=== PATIENT | female | born 1990 | race African-American/Black ===

== ENCOUNTER 2017-01-18 18:27 | Inpatient (IN) | payer OTHER ==
[2017-01-18 20:45] LABS: MCH 27.6 pg (25.7-33.7); MCHC 33.1 g/dl (32.0-36.0); MEAN CELL VOLUME 83.3 fl (80-96); MEAN PLT VOLUME 7.4 fl (7.5-11.1); PLATELET COUNT 321 K/MM3 (134-434); RDW 15.6 % (11.6-15.6)
--- NOTE | 2017-01-18 21:02 | PDOC ---
History of Present Illness - General Chief Complaint: Abscess Boil Stated Complaint: Abscess Boil Time Seen by Provider: 01/18/17 19:57 - History of Present Illness Initial Comments: 01/18/17 20:56 Previously healthy 26 year female with swollen and painful lesion on inner right thigh that began draining yesterday evening after a hot bath. Denies any previous history of abscesses or cellulites but noticed this swelling three days ago followed by a fever the next day that she recorded over 100 degrees. She took a hot soak in her tub last night and noticed purulent and malodorous drainage a few hours after. No chills, nausea, vomiting, diarrhea or other symptoms. She is on Depot shot. Her PCP is Dr. Ferrera 01/18/17 21:21 Past History - Past Medical History Allergies/Adverse Reactions: Allergies Allergy/AdvReac Type Severity Reaction Status Date / Time No Known Allergies Allergy Verified 01/18/17 18:38 Home Medications: Ambulatory Orders Ferrous Sulfate [Feosol] 325 mg PO TID 10/22/15 Anemia: Yes Asthma: No Cancer: No Cardiac Disorders: No Diabetes: No HTN: No Suicide Attempt (Hx): No Seizures: No Thyroid Disease: No - Surgical History Cholecystectomy: Yes - Immunization History Immunization Up to Date: Yes - Psycho/Social/Smoking Cessation Hx Anxiety: No Suicidal Ideation: No Smoking Status: No Smoking History: Never smoked Have you smoked in the past 12 months: No Number of Cigarettes Smoked Daily: 0 Information on smoking cessation initiated: No Hx Alcohol Use: No Drug/Substance Use Hx: No Substance Use Type: None Hx Substance Use Treatment: No Review of Systems - Review of Systems Constitutional: Yes: Fever. No: Chills, Diaphoresis, Loss of Appetite, Malaise , Weakness HEENTM: No: Blurred Vision, Nose Congestion Respiratory: No: Cough, Shortness of Breath, SOB with Exertion Cardiac (ROS): No: Chest Pain, Edema, Irregular Heart Rate, Lightheadedness, Palpitations ABD/GI: No: Constipated, Nausea, Poor Appetite, Rectal Bleeding, Vomiting, Indigestion : No: Burning, Discharge, Frequency, Hematuria Musculoskeletal: No: Joint Swelling, Muscle Pain, Joint Stiffness Integumentary: No: Erythema Neurological: No: Headache, Paresthesia, Weakness *Physical Exam - Vital Signs Last Vital Signs Temp Pulse Resp BP Pulse Ox 99.6 F 93 H 18 117/68 100 01/18/17 18:39 01/18/17 18:39 01/18/17 18:39 01/18/17 18:39 01/18/17 18:39 - Physical Exam General Appearance: Yes: Appropriately Dressed. No: Apparent Distress HEENT: positive: GABRIEL, Normal Voice. negative: Tonsillar Erythema Respiratory/Chest: positive: Lungs Clear, Normal Breath Sounds. negative: Respiratory Distress, Accessory Muscle Use Cardiovascular: positive: Regular Rhythm, Regular Rate, S1, S2. negative: Edema , JVD, Murmur Gastrointestinal/Abdominal: positive: Normal Bowel Sounds, Soft. negative: Tender, Flat Lymphatic: negative: Adenopathy Integumentary: positive: Other (Area of th) Neurologic: positive: Fully Oriented, Alert, Normal Mood/Affect ED Treatment Course - LABORATORY CBC & Chemistry Diagram: 01/18/17 20:42 01/18/17 20:42 - ADDITIONAL ORDERS Additional order review: 01/18/17 20:42 RBC 4.11 MCV 83.3 MCHC 33.1 RDW 15.6 MPV 7.4 L Medical Decision Making - Medical Decision Making 01/18/17 21:22 Previously healthy 26 year old female with erythematous and indurated right inner thigh abscess x3 days and recent drainage. Had one day of fever yesterday but currently afebrile without other symptoms. Concern for complex and loculated abscess given 114-15 cm area of erythema with 5-6 cm area of induration. WBC 11 and electrolytes within normal limits with neg Upreg. After speaking with Dr. Loaiza, will start patient on Zosyn, with ID and gen surg consult. 01/18/17 22:08 *DC/Admit/Observation/Transfer Diagnosis at time of Disposition: Abscess - Discharge Dispostion Condition at time of disposition: Stable Admit: Yes - Attestations Physician Attestion: 01/18/17 22:14 I, Dr. Johnny Baez, attest that this document has been prepared under my direction and personally reviewed by me in its entirety. I further attest, that it accurately reflects all work, treatment, procedures and medical decision -making performed by me.
[2017-01-18] MEDS ORDERED: CLINDAMYCIN 600MG PREMIX IVPB 50 ML IVPB ONE (21:05)
[2017-01-18] MEDS: CLINDAMYCIN 600MG PREMIX IVPB 50 ML IVPB SCH ×2 (21:17→21:19)
[2017-01-18 21:44] LABS: URINE APPEARANCE CLEAR; URINE BILIRUBIN NEGATIVE (NEGATIVE); URINE COLOR DKYELLOW; URINE GLUCOSE (UA) NEGATIVE (NEGATIVE); URINE KETONE TRACE (NEGATIVE); URINE LEUK ESTERASE NEGATIVE (NEGATIVE); URINE NITRITE NEGATIVE (NEGATIVE); URINE UROBILINOGEN 2.0 E.U/dl E.U./dl (0.2-1.0)
[2017-01-18 21:49] LABS: ANION GAP 7 (8-16); CALCIUM 8.9 mg/dL (8.5-10.1); CO2 28 mmol/L (21-32); CREATININE 0.6 mg/dL (0.55-1.02); GLUCOSE,RANDOM 77 mg/dL (74-106)
[2017-01-18 21:50] LABS: URINE BLOOD 2+ (NEGATIVE); URINE PROTEIN 1+ (NEGATIVE)
[2017-01-18 22:03] LABS: INR 1.28 (0.82-1.09); PROTHROMBIN TIME (PATIENT) 14.2 SEC (9.98-11.88)
[2017-01-18 22:08] LABS: URINE MUCUS MANY; URINE RBC 6 /hpf (0-3); URINE WBC 4 /hpf (3-5)
[2017-01-18] MEDS ORDERED: PIPERACILLIN/TAZOB 3.375 GM 50 ML IVPB ONE (23:13)
[2017-01-18] MEDS: PIPERACILLIN/TAZOB 3.375 GM/50 ML PRE-DOCKED IV SCH (23:16)
[2017-01-18] MEDS ORDERED: IBUPROFEN 400 MG TABLET (FP) PO ONE (23:46)
[2017-01-18] MEDS ORDERED: POTASSIUM CHLORIDE TABS 10 MEQ TABLET.ER (FP) PO ONE (23:50)
[2017-01-19] MEDS ORDERED: IBUPROFEN 400 MG TABLET (FP) PO ONE (00:02)
[2017-01-19] MEDS ORDERED: POTASSIUM CHLORIDE TABS 20 MEQ TABLET.ER (FP) PO ONE (00:08)
[2017-01-19] MEDS ORDERED: POTASSIUM CHLORIDE TABS 10 MEQ TABLET.ER (FP) PO ONE (00:18)
[2017-01-19 03:25] VITALS: BMI 33.3
[2017-01-19] MEDS: PIPERACILLIN/TAZOB 3.375 GM/50 ML PRE-DOCKED IV SCH ×2 (03:52→09:35)
[2017-01-19 06:52] LABS: EOSINOPHIL 1.5 % (0-4.5); MCH 28.2 pg (25.7-33.7); MCHC 33.6 g/dl (32.0-36.0); MEAN CELL VOLUME 83.9 fl (80-96); MEAN PLT VOLUME 7.4 fl (7.5-11.1); NEUTROPHILS 47.2 % (42.8-82.8); PLATELET COUNT 311 K/MM3 (134-434); RDW 15.7 % (11.6-15.6); WHITE BLOOD COUNT 10.3 K/mm3 (4.0-10.0)
[2017-01-19 07:15] LABS: ALBUMIN 3.5 g/dl (3.4-5.0); ANION GAP 10 (8-16); BILIRUBIN,TOTAL 0.8 mg/dL (0.2-1.0); CALCIUM 8.9 mg/dL (8.5-10.1); CO2 28 mmol/L (21-32); CREATININE 0.7 mg/dL (0.55-1.02); GLUCOSE,RANDOM 74 mg/dL (74-106); SGOT/AST 14 U/L (15-37); SGPT/ALT 16 U/L (12-78); TOT PROT 7.9 g/dl (6.4-8.2)
[2017-01-19 07:16] LABS: ALK PHOS 116 U/L (45-117)
--- NOTE | 2017-01-19 08:34 | CONSULT ---
- Consultation REQUESTING PROVIDER: Elis CONSULT REQUEST: We have been asked to surgically evaluate this patient for ? STI right medial thigh PCP:Alonso Gillis HISTORY OF PRESENT ILLNESS: CTSP for evaluation and management of an ABSSSI of the right medial thigh; 3 days of progressive pain and swelling in an area of a ? " pimple" that she squeezed; the area subsequently opened and started to drain spontaneously. She has never had a soft tissue infection before. PMHx: none PSHx: none Home Medications Medication Instructions Recorded Ferrous Sulfate [Feosol] 325 mg PO TID 10/22/15 Allergies Allergy/AdvReac Type Severity Reaction Status Date / Time No Known Allergies Allergy Verified 01/18/17 18:38 PHYSICAL EXAM: GENERAL: Awake, alert, and fully oriented, in no acute distress. HEAD: Normal with no signs of trauma. EYES: sclera anicteric, conjunctiva clear. NECK: Normal ROM, supple without lymphadenopathy, JVD, or masses. ABDOMEN: Soft, nontender, not distended, normoactive bowel sounds, no guarding, no rebound, no masses. No organomegaly. MUSCULOSKELETAL: Normal ROM at all joints. No bony deformities or tenderness. No CVA tenderness. UPPER EXTREMITIES: 2+ pulses, warm, well-perfused. No cyanosis. Cap refill <2 seconds. No peripheral edema. LOWER EXTREMITIES: 2+ pulses, warm, well-perfused. No calf tenderness. No peripheral edema. NEUROLOGICAL: Normal speech, gait not observed. PSYCH: Cooperative. Good eye contact. Appropriate mood and affect. SKIN: Warm, dry, normal turgor, no rashes. Induration right medial thigh w/ draining area; slight ttp; no erythema Vital Signs Temperature 98.4 F 01/19/17 06:15 Pulse Rate 69 01/19/17 06:15 Respiratory Rate 20 01/19/17 06:15 Blood Pressure 115/69 01/19/17 06:15 O2 Sat by Pulse Oximetry (%) 99 01/19/17 01:08 Lab Results WBC 10.3 K/mm3 (4.0-10.0) H 01/19/17 05:50 RBC 4.03 M/mm3 (3.60-5.2) 01/19/17 05:50 Hgb 11.4 GM/dL (10.7-15.3) 01/19/17 05:50 Hct 33.8 % (32.4-45.2) 01/19/17 05:50 MCV 83.9 fl (80-96) 01/19/17 05:50 MCHC 33.6 g/dl (32.0-36.0) 01/19/17 05:50 RDW 15.7 % (11.6-15.6) H 01/19/17 05:50 Plt Count 311 K/MM3 (134-434) 01/19/17 05:50 Sodium 142 mmol/L (136-145) 01/19/17 05:50 Potassium 3.6 mmol/L (3.5-5.1) 01/19/17 05:50 Chloride 104 mmol/L (98-107) 01/19/17 05:50 Carbon Dioxide 28 mmol/L (21-32) 01/19/17 05:50 Anion Gap 10 (8-16) 01/19/17 05:50 BUN 9 mg/dL (7-18) 01/19/17 05:50 Creatinine 0.7 mg/dL (0.55-1.02) 01/19/17 05:50 Random Glucose 74 mg/dL (74-106) 01/19/17 05:50 Calcium 8.9 mg/dL (8.5-10.1) 01/19/17 05:50 Blood Type O POSITIVE 01/18/17 21:24 Antibody Screen Negative 01/18/17 21:24 INR 1.28 (0.82-1.09) H 01/18/17 21:31 IMP: ABSSSI right medial thigh PLAN: IVABS; warm compresses and re-evaluation; may need I and D; will f/u. Luigi Cuevas MD [facility] Visit type - Case Type Case Type: ED Admission - Emergency Emergency Visit: Yes ED Registration Date: 01/18/17 Care time: The patient presented to the Emergency Department on the above date and was hospitalized for further evaluation of their emergent condition. - New patient This patient is new to me today: Yes Date on this admission: 01/19/17 - Critical Care Critical Care patient: No
[2017-01-19 09:33] LABS: ERYTHROCYTE SEDIMENTATION RATE 52 mm/hr (0-20)
[2017-01-19] MEDS ORDERED: ENOXAPARIN NA (PORCINE) 30 MG/0.3 ML DISP.SYRIN SQ SCH (10:00)
--- NOTE | 2017-01-19 11:32 | PN ---
Progress Note (short form) - Note Progress Note: Healthy 26yo AA F with no known hx of diabetes presents with right inner thigh abscess. Pt states that the lesion began as a small pimple which she noticed 3 days ago. The next day the abscess grew in size and became erythematous. Pt states that she had taken a hot bath when she noticed that abscess began to drain white/yellow discharge and she reports having a temperature of 100.1F after which she came to the ED. Pt denies having any history of abscess or skin infections in the past. Denies shaving the area or ingrown hairs. Denies new pets or sick contact. Denies N/V/D or chills. Denies LE numbness or tingling. Past surgical hx of cholecystectomy in 2014. No known drug allergies. Impression/Plan: R thigh cellulitis with abscess-cover staph including MRSA and strep F/U wound and blood Cx for C/S. Start IV Vanco 1250mg BID Warm compress surgical f/u may need drainage Problem List - Problems (1) Abscess Code(s): L02.91 - CUTANEOUS ABSCESS, UNSPECIFIED (2) Cellulitis Code(s): L03.90 - CELLULITIS, UNSPECIFIED
[2017-01-19] MEDS ORDERED: VANCOMYCIN 1,250 MG in DEXTROSE 5%-WATER - 250 ML IVPB SCH (12:00)
--- NOTE | 2017-01-19 12:13 | EKG ---
Test Reason : Blood Pressure : / mmHG Vent. Rate : 066 BPM Atrial Rate : 066 BPM P-R Int : 158 ms QRS Dur : 094 ms QT Int : 408 ms P-R-T Axes : 049 019 022 degrees QTc Int : 427 ms NORMAL SINUS RHYTHM WITH SINUS ARRHYTHMIA EARLY REPOLARIZATION PATTERN NO PREVIOUS ECGS AVAILABLE CORELATE CLINICALLY. Confirmed by LEONIDAS VELARDE MD ([id number]) on 01/19/2017 12:12:56 PM Referred By: [facility] Confirmed By:LEONIDAS VELARDE MD
--- NOTE | 2017-01-19 14:48 | CONS ---
INFECTIOUS DISEASE CONSULTATION DATE OF CONSULTATION: DATE OF DICTATION: 01/19/2017 REQUESTING PHYSICIAN: The hospitalist service. HISTORY OF PRESENT ILLNESS: This is a 26-year-old woman, otherwise healthy, no history of diabetes, who presents with a 3-day history of what started as a pustule on her right inner thigh. It began to swell. She tried to squeeze it. She had a little drainage. She developed some fever of 100.1 at home, and she came to the emergency room. She did take a hot shower yesterday and noted that she started having some spontaneous drainage. Besides the low-grade fever, she has had no chills. There is no vomiting, diarrhea, dysuria, cough. She otherwise feels well. She lives at home with her children, and she reports one child gets an allergic reaction to mosquito bites, but there is no history of any of her kids having skin problems. She has no history of prior abscesses in the past. ALLERGIES: She has no known drug allergies. MEDICATIONS: She takes Feosol as an outpatient. PAST MEDICAL HISTORY: Notable for anemia. SURGICAL HISTORY: Cholecystectomy. OBSTETRICAL HISTORY: She is status post vaginal delivery of 5 kids in the past. She has been 4 times. She has 5 children. She has a set of twins. FAMILY HISTORY: Noncontributory. SOCIAL HISTORY: She is from [place]. There is no history of any cigarette or substance use. REVIEW OF SYSTEMS: She has no cough. No nausea, vomiting, diarrhea, or dysuria. PHYSICAL EXAMINATION: Vital Signs: Temperature is 98.2, pulse is 78, blood pressure is 118/61, respiratory rate 17. She is saturating 100%. HEENT: She is normocephalic. Her eyes are anicteric. Neck: Supple. Lungs: Clear to auscultation. Heart: Regular rate and rhythm. Abdomen: Soft and nontender. Extremities: Notable for about a 6-cm area of induration and erythema on her right inner thigh with a small opening that is draining a small amount of serous fluid. LABORATORY DATA: Her white count on admission was 11. This morning, is 10.3. Hemoglobin is 11.4. Platelets are 311. Her BUN is 9 and creatinine 0.7. LFTs are normal. Her urine beta hCG is negative. Cultures of the abscess and blood cultures are pending. In summary, this is a 26-year-old woman with abscess with associated cellulitis. Her coverage needs to include MRSA in this setting, as well as other staphylococcus and streptococcus. Would treat her with vancomycin. Follow up wound and blood cultures, warm compresses, and surgical followup as needed to see if she ends up needing drainage or whether this will resolve with antibiotics. Further recommendations to follow. Esa HADDAD/[id number]
--- NOTE | 2017-01-19 16:57 | HP ---
Admitting History and Physical - Primary Care Physician PCP: Alonso Gillis - Admission Chief Complaint: pain & swelling Rt inner thigh History of Present Illness: 26 y/o otherwise healthy F; who states that she developed a lump on the inner RT thiigh which started 3 days ago as a small "pimple" which she tried to squeeze but was not successful. The lesions grew worse in the ensuing days leading to admission, and likely developed a low grade fever as well, She denies any previous such occurrences anywhere. She denies Hx of DM, or any other Medical issues. She did have her GB removed in 2016 @ [facility] while 17 Months . As of late, she was doing more aerobic activity n(walking) and felt rubbing of her thighs, but did not feel any discomfort until 3 days ago. She feels better today when compared to days past. History Source: Patient Limitations to Obtaining History: No Limitations - Past Medical History ...: No Heme/Onc: Yes: Anemia - Past Surgical History Past Surgical History: Yes: Cholecystectomy - Smoking History Smoking history: Never smoked Have you smoked in the past 12 months: No Aproximately how many cigarettes per day: 0 - Alcohol/Substance Use Hx Alcohol Use: No History of Substance Use: reports: None (denies) - Social History Usual Living Arrangement: Yes: With Child (5) ADL: Support Services History of Recent Travel: No Home Medications - Allergies Allergies/Adverse Reactions: Allergies Allergy/AdvReac Type Severity Reaction Status Date / Time No Known Allergies Allergy Verified 01/18/17 18:38 - Home Medications Home Medications: Ambulatory Orders Ferrous Sulfate [Feosol] 325 mg PO TID 10/22/15 Home Medications (free text): Depo-IM control med (given by Architectural Administrative Assistant) Family Disease History - Family Disease History Family History: Unremarkable Review of Systems - Review of Systems Constitutional: reports: Chills, Fever Eyes: reports: No Symptoms HENT: reports: No Symptoms Neck: reports: No Symptoms Cardiovascular: reports: No Symptoms Respiratory: reports: No Symptoms Gastrointestinal: reports: No Symptoms Genitourinary: reports: No Symptoms Breasts: reports: No Symptoms Reported Musculoskeletal: reports: No Symptoms Integumentary: reports: Wound Neurological: reports: No Symptoms Endocrine: reports: No Symptoms Hematology/Lymphatic: reports: No Symptoms Physical Examination Vital Signs: Vital Signs Temperature 98.6 F 01/19/17 14:25 Pulse Rate 67 01/19/17 14:25 Respiratory Rate 18 01/19/17 14:25 Blood Pressure 123/67 01/19/17 14:25 O2 Sat by Pulse Oximetry (%) 100 01/19/17 09:28 Constitutional: Yes: Well Nourished, No Distress, Calm Eyes: Yes: WNL, Conjunctiva Clear, EOM Intact HENT: Yes: Atraumatic Neck: Yes: WNL Cardiovascular: Yes: WNL Respiratory: Yes: WNL Gastrointestinal: Yes: WNL ...Rectal Exam: Yes: Deferred Renal/: Yes: WNL Musculoskeletal: Yes: WNL Extremities: Yes: Other (Dressing over abscess site of the Rt thigh) Edema: No Peripheral Pulses WNL: Yes Integumentary: Yes: Erythema (Rt thigh) Wound/Incision: Yes: Clean/Dry Neurological: Yes: WNL ...Motor Strength: WNL Psychiatric: Yes: WNL Labs: CBC, BMP 01/19/17 05:50 01/19/17 05:50 Imaging - Results EKG: Report Reviewed Problem List - Problems (1) Cellulitis Assessment/Plan: RLE; with abscess. Cont bs; will be assessed by Surgeon daily; as well as ID Code(s): L03.90 - CELLULITIS, UNSPECIFIED Qualifiers: Site of cellulitis: extremity Laterality: right (2) Abscess Assessment/Plan: RT Thigh with surrounding; cellulitis. PLAN:Iv Vanco, may need debridement. Code(s): L02.91 - CUTANEOUS ABSCESS, UNSPECIFIED (3) History of laparoscopic cholecystectomy Assessment/Plan: s/p cholecystectmy while in 2015 ~~~~~~~~~~~~~~~~~~~~~~~~~~~~~~~~~~ Dr Gillis..........1.Hr Code(s): Z90.49 - ACQUIRED ABSENCE OF OTHER SPECIFIED PARTS OF DIGESTIVE TRACT (4) Hematuria Assessment/Plan: 2+; related to drug induced cycle disruption? Code(s): R31.9 - HEMATURIA, UNSPECIFIED Qualifiers: Hematuria type: other microscopic Qualified Code(s): R31.29 - Other microscopic hematuria; R31.2 - Other microscopic hematuria
[2017-01-19] MEDS ORDERED: traMADol HCL 50 MG TABLET PO PRN (17:16)
[2017-01-19 19:43] VITALS: BP 118/68; PULSE 84; TEMP 98.7
--- NOTE | 2017-01-20 17:50 | PN ---
Progress Note (short form) - Note Progress Note: Addendum: contacted patient who "signed herself out" TAMI yesterday (due to sick child); states that she is "okay".i explained to her that if she starts to feel ill in any way to return to ED. Will await full Micro report in order to determine what type of Ab will be needed, and I have informed her that I would be contacting her when I obtain that result. Problem List - Problems (1) Cellulitis Code(s): L03.90 - CELLULITIS, UNSPECIFIED Qualifiers: Site of cellulitis: extremity Laterality: right (2) Abscess Code(s): L02.91 - CUTANEOUS ABSCESS, UNSPECIFIED (3) History of laparoscopic cholecystectomy Code(s): Z90.49 - ACQUIRED ABSENCE OF OTHER SPECIFIED PARTS OF DIGESTIVE TRACT (4) Hematuria Code(s): R31.9 - HEMATURIA, UNSPECIFIED Qualifiers: Hematuria type: other microscopic Qualified Code(s): R31.29 - Other microscopic hematuria; R31.2 - Other microscopic hematuria
== END 2017-01-19 22:18 | disposition left against medical advice (07) | DRG 383 ==
LOC: JER 18:27 → JERBED 22:15 → J6S 01-19 02:16
PROVIDERS: ADMIT Internal Medicine; ATTEND Internal Medicine
DX: L02.415 Cutaneous abscess of right lower limb (principal); R31.9 Hematuria, unspecified
CPT/HCPCS: 36415; 80048; 80053; 81003; 81015; 83036; 84703; 85025; 85027; 85610; 85651; 86850; 86900; 86901; 87040; 87070; 87186; 87205; 93005; 93010; 99283-25

== ENCOUNTER 2017-08-25 10:07 | Emergency (ER) | payer OTHER ==
[2017-08-25 10:36] VITALS: BP 108/59; PULSE 99; TEMP 98; BMI 38.4
--- NOTE | 2017-08-25 11:27 | PDOC ---
History of Present Illness - General Chief Complaint: Injury Stated Complaint: FALL RT KNEE PAIN Time Seen by Provider: 08/25/17 11:15 History Source: Patient Exam Limitations: No Limitations - History of Present Illness Initial Comments: 08/25/17 11:33 27 yr female slipped and fell last night and injured both knees pt has pain to both knees. Past History - Past Medical History Allergies/Adverse Reactions: Allergies Allergy/AdvReac Type Severity Reaction Status Date / Time No Known Allergies Allergy Verified 08/25/17 10:30 Home Medications: Ambulatory Orders NK [No Known Home Medication] 08/25/17 Anemia: Yes Asthma: No Cancer: No Cardiac Disorders: No COPD: No Diabetes: No HTN: No Seizures: No Thyroid Disease: No - Surgical History Cholecystectomy: Yes - Immunization History Immunization Up to Date: Yes - Suicide/Smoking/Psychosocial Hx Smoking Status: No Smoking History: Never smoked Have you smoked in the past 12 months: No Number of Cigarettes Smoked Daily: 0 Information on smoking cessation initiated: No Hx Alcohol Use: No Drug/Substance Use Hx: No Substance Use Type: None Hx Substance Use Treatment: No *Physical Exam - Vital Signs Last Vital Signs Temp Pulse Resp BP Pulse Ox 98 F 99 H 16 108/59 100 08/25/17 10:31 08/25/17 10:31 08/25/17 10:31 08/25/17 10:31 08/25/17 10:31 - Physical Exam General Appearance: Yes: Nourished HEENT: positive: EOMI, GABRIEL Neck: positive: Supple. negative: Tender Respiratory/Chest: positive: Lungs Clear, Normal Breath Sounds. negative: Chest Tender Cardiovascular: positive: Regular Rhythm, Regular Rate Lymphatic: negative: Adenopathy Musculoskeletal: positive: Normal Inspection Extremity: positive: Normal Capillary Refill, Normal Inspection, Tender ( bilateral patella tenderness , no crepitsu FROM nv intact) Neurologic: positive: Fully Oriented, Alert, Normal Mood/Affect, Normal Response , Motor Strength 5/5 *DC/Admit/Observation/Transfer Diagnosis at time of Disposition: Contusion of knee Qualifiers: Encounter type: initial encounter Laterality: right Qualified Code(s): S80.01XA - Contusion of right knee, initial encounter Contusion of knee, left Qualifiers: Encounter type: initial encounter Qualified Code(s): S80.02XA - Contusion of left knee, initial encounter - Discharge Dispostion Disposition: HOME Condition at time of disposition: Good - Referrals Referrals: Alonso Gillis MD [Primary Care Provider] - Luigi Duvall MD [Staff Physician] - - Patient Instructions Additional Instructions: follow with the orthopedist in 2-3 days for follow up take over the counter tylenol or motrin for pain elevate and apply ice every 2hrs for 20 minutes to the area of pain for the next 2 days - Post Discharge Activity
== END 2017-08-25 13:37 | disposition home or self-care (01) ==
LOC: JERFT 10:07
DX: S80.02XA Contusion of left knee, initial encounter (principal); S80.01XA Contusion of right knee, initial encounter; W01.0XXA Fall on same level from slipping, tripping and stumbling without subsequent striking against object, initial encounter; Y93.89 Activity, other specified; Y92.89 Other specified places as the place of occurrence of the external cause; Y99.8 Other external cause status
CPT/HCPCS: 73562-TC-LT-FY; 73562-TC-RT-FY; 84703; 99281-25

== ENCOUNTER 2018-09-27 07:40 | Inpatient (IN) | payer OTHER ==
[2018-09-27] MEDS: DEXTROSE 5%-LACTATED RINGERS 1,000 ML IV SCH (20:55)
[2018-09-27] MEDS ORDERED: AMPICILLIN - 2 GM in SODIUM CHLORIDE 100 ML IVPB ONE (21:00)
[2018-09-27 21:54] LABS: BASO % 0.4 % (0-2.0); EOS % 0.5 % (0-4.5); HEMATOCRIT 27.5 % (32.4-45.2); HEMOGLOBIN 9.4 GM/dL (10.7-15.3); LYMPH % 17.9 % (8-40); MCH 30.2 pg (25.7-33.7); MCHC 34.3 g/dl (32.0-36.0); MEAN CELL VOLUME 88.2 fl (80-96); MEAN PLT VOLUME 8.3 fl (7.5-11.1); MONO % 7.2 % (3.8-10.2); PLATELET COUNT 418 K/MM3 (134-434); RBC 3.12 M/mm3 (3.60-5.2); RDW 13.7 % (11.6-15.6)
[2018-09-27 22:08] LABS: INR 0.98 (0.83-1.09); PROTHROMBIN TIME (PATIENT) 11.6 SEC (9.7-13.0)
[2018-09-27 22:11] LABS: ACTIVATED PTT 24.7 SECONDS (25.2-36.5)
[2018-09-27 22:44] LABS: ANION GAP 6 MMOL/L (8-16); BLOOD UREA NITROGEN 6 mg/dL (7-18); CALCIUM 8.3 mg/dL (8.5-10.1); CHLORIDE 104 mmol/L (98-107); CO2 24 mmol/L (21-32); CREATININE 0.5 mg/dL (0.55-1.3); GLUCOSE,RANDOM 72 mg/dL (74-106); POTASSIUM 3.5 mmol/L (3.5-5.1); SODIUM 135 mmol/L (136-145)
--- NOTE | 2018-09-27 22:56 | HP ---
Admitting History and Physical - Admission Chief Complaint: contraction History of Present Illness: 28 y/o comes with complaints of ctx, has had al vaginal vaginal deliveries. [facility] . GBs pos on meds, care is otherwise unremarkable. 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: Alzheimer's, CVA, Dementia, Migraine, Multiple Sclerosis, Peripheral Neuropathy, Parkinson's, Seizure, Syncope, TIA, Vertigo, Other Cardiovascular: No: AFIB, Aneurysm, Aortic Insufficiency, Aortic Stenosis, CAD, CHF, Deep Vein Thrombosis, HTN, Hyperlipdemia, [place], Mitral Insufficiency, Mitral Stenosis, Murmur, Pulmonary Hypertension, Other Pulmonary: No: Asthma, Bronchitis, Cancer, COPD, O2 Dependent, Pneumonia, Previously Intubated, Pulmonary Embolus, Pulmonary Fibrosis, Sleep Apnea, Other Gastrointestinal: No: Ascites, Cancer, Constipation, Crohn's Disease, Diverticulitis, Diverticulosis, Esophageal Varices, Gastritis, GERD, GI Bleed, Hemorrhoids, Hiatal Hernia, Inflamatory Bowel Disease, Irritable Bowel Disease, Pancreatitis, Peptic Ulcer Disease, Ulcerative Colitis, Other Hepatobiliary: No: Cirrhosis, Cholelithiasis, Cholecystitis, Choledocholithiasis , Hepatitis A, Hepatitis B, Hepatitis C, Other Renal/: No: Renal Failure, Renal Inusuff, BPH, Cancer, Hematuria, Hemodialysis , Neurogenic Bladder, Renal Calculi, UTI, Other Reproductive: No: Ectopic , Endometriosis, Fibroids, PID, Polycystic Ovary Syndrome, Postmenopausal, Other Heme/Onc: Yes: Anemia Infectious Disease: No: AIDS, C-Diff, Herpes Zoster, HIV, MRSA, STD's, Tuberculosis, VREF, Other Psych: No: Addictions, Anxiety, Bipolar, Depression, Panic, Psychosis, Schizophrenia, Other Musculoskeletal: No: Bursitis, Chronic low back pain, Hemiparesis, Hemiplegia, Osteoarthritis, Paraplegia, Other Dermatology: No: Basal Cell, Cellulitis, Eczema, Melanoma, Psoriasis, Squamous Cell, Other - Past Surgical History Past Surgical History: Yes: Cholecystectomy. No: None, AAA Repair, AICD, Amputation, Appendectomy, Arthrosocopy, AV Fistula/Graft, Bariatric Surgery, Breast Biopsy, Bypass, CABG, Carotid Endarterectomy, Cataract Removal, Colectomy , Colonoscopy, Colostomy, Craniotomy, , Cystectomy, Hernia Repair, Hysterectomy, Ileal Conduit, Ileosotomy, Joint Replacement, Kidney Transplant, Laminectomy, Liver Transplant, Mastectomy, Nephrectomy, Oopherectomy, Orchiectomy, Permanent Pacemaker, Prostatectomy, Splenectomy, Stent, Thoracotomy , TURP, Tonsillectomy, Tubal Ligation, Upper Endoscopy, Valve Replacement, Vasectomy, Vein Stripping/Ligation - Advance Directives Advance Directives: No: Living Will, Health Care Proxy, DNR, Organ Donor, Tissue Donor, MOLST - Smoking History Smoking history: Never smoked Have you smoked in the past 12 months: No Aproximately how many cigarettes per day: 0 - Alcohol/Substance Use Hx Alcohol Use: No History of Substance Use: reports: None (denies). denies: Cocaine, Heroin, Marijuana, Prescription, Tranquilizers - Social History ADL: Support Services History of Recent Travel: No Home Medications - Allergies Allergies/Adverse Reactions: Allergies Allergy/AdvReac Type Severity Reaction Status Date / Time No Known Allergies Allergy Verified 09/17/18 00:26 - Home Medications Home Medications: Ambulatory Orders Pnv No.95/Ferrous Fum/Folic AC [ Vitamin Tablet] 1 each PO DAILY Review of Systems - Review of Systems Constitutional: reports: No Symptoms Eyes: reports: No Symptoms HENT: reports: No Symptoms Neck: reports: No Symptoms Cardiovascular: reports: No Symptoms Respiratory: reports: No Symptoms Gastrointestinal: reports: No Symptoms Genitourinary: reports: No Symptoms Integumentary: reports: No Symptoms Neurological: reports: No Symptoms Endocrine: reports: No Symptoms Physical Examination Vital Signs: Vital Signs Temperature 98.5 F 09/27/18 22:00 Pulse Rate 92 H 09/27/18 22:00 Respiratory Rate 20 09/27/18 22:00 Blood Pressure 121/65 09/27/18 22:00 O2 Sat by Pulse Oximetry (%) Constitutional: Yes: Well Nourished Eyes: Yes: WNL HENT: Yes: WNL Neck: Yes: WNL Cardiovascular: Yes: WNL Respiratory: Yes: WNL Gastrointestinal: Yes: WNL ...Rectal Exam: Yes: WNL Renal/: Yes: WNL Breast(s): No: WNL, Left, Right, Breast Implants, Dimpling, Discharge from Nipple, Gynecomastia, Mass, Nipple Inversion, Skin Changes, Other Extremities: Yes: WNL Labs: CBC, BMP 09/27/18 21:00 09/27/18 21:00 Assessment/Plan as above 4 cm/-2/50% cat one tracing gbs proph will labor expect
[2018-09-27] MEDS ORDERED: PROMETHAZINE HCL 25 MG/1 ML VIAL IVPUSH ONE (23:00)
[2018-09-27] MEDS ORDERED: BUTORPHANOL TARTRATE 1 MG/ML VIAL IVPB ONE (23:00)
[2018-09-27] MEDS ORDERED: AMPICILLIN - 2 GM in SODIUM CHLORIDE 100 ML IVPB SCH (23:15)
[2018-09-28] MEDS ORDERED: BUTORPHANOL TARTRATE 1 MG/ML VIAL ONE ×2
[2018-09-28] MEDS ORDERED: PROMETHAZINE HCL 25 MG/1 ML VIAL ONE
[2018-09-28] MEDS ORDERED: AMPICILLIN SODIUM 1 GM VIAL ONE ×3 (00:44→08:09)
[2018-09-28] MEDS: AMPICILLIN - 1 GM in SODIUM CHLORIDE 100 ML IVPB SCH ×4 (01:00→15:04)
[2018-09-28] MEDS: DEXTROSE 5%-LACTATED RINGERS 1,000 ML IV SCH (01:00)
[2018-09-28 01:39] VITALS: BMI 34.2
--- NOTE | 2018-09-28 05:25 | PN ---
Progress Note (short form) - Note Progress Note: pt now 7 cm, doing well cat one will expect
[2018-09-28] MEDS ORDERED: LIDOCAINE HCL 1% PRESERVATIVE FREE - 30ML VIAL ONE (05:48)
[2018-09-28] MEDS ORDERED: OXYTOCIN 20 UNITS in 0.9% NS 20 UNIT/1,000 ML INFUS.BAG IV ONE ×2 (05:49→11:52)
--- NOTE | 2018-09-28 06:20 | PN ---
Progress Note (short form) - Note Progress Note: pt felt pressure and wanted to push, tried with some efforts, 8-9cm/100/ fht-cat 1 toco-irregular will contine to labor expect
[2018-09-28] MEDS ORDERED: BUTORPHANOL TARTRATE 1 MG/ML VIAL IVPUSH PRN (07:29)
[2018-09-28] MEDS ORDERED: BENZOCAINE 28 GM HEMORRHOIDAL OINTMENT TP PRN (09:33)
[2018-09-28] MEDS ORDERED: BENZOCAINE 20% 57 GM BOTTLE TP PRN (09:33)
[2018-09-28] MEDS ORDERED: METHYLERGONOVINE MALEATE 0.2 MG/1 ML AMP IM PRN (09:33)
[2018-09-28] MEDS ORDERED: BISACODYL 10 MG SUPP.RECT RC PRN (09:33)
[2018-09-28] MEDS ORDERED: WITCH HAZEL 50% (TUCKS) 40 PAD/JAR PAD TP PRN (09:33)
--- NOTE | 2018-09-28 09:37 | PN ---
Delivery - Delivery Vaginal Delivery: Spontaneous Episiotomy/Laceration: None EBL (cc): 300 Delivery, Single - Feeding Plan Initial Plan: Elected not to breastfeed exclusively throughout hospitalization Remarks - Remarks Remarks: Normal spontaneous vaginal delivery of a live infant boy over intact perineum. Nose/Oropharynx suctioned @ perineum. Cord clamped and cut. Baby handed to nurse. Placenta expelled spontaneously intact. Mother in stable condition.
[2018-09-28] MEDS ORDERED: ACETAMINOPHEN 325 MG TABLET (FP) ONE (09:42)
[2018-09-28] MEDS: IBUPROFEN 600 MG TABLET (FP) PO PRN ×3 (09:45→21:31)
[2018-09-28] MEDS ORDERED: OXYTOCIN 20 UNITS in 0.9% NS 20 UNIT/1,000 ML INFUS.BAG IV SCH (09:45)
[2018-09-28] MEDS: ACETAMINOPHEN 325 MG TABLET (FP) PO PRN ×3 (09:45→21:31)
[2018-09-28] MEDS: PRENATAL VITAMINS W/ FOLIC ACID TABLET (FP) PO SCH (11:34)
[2018-09-28] MEDS: FERROUS SO4 325 MG TABLET (FP) PO SCH (17:51)
[2018-09-29 08:20] LABS: BASO % 0.5 % (0-2.0); EOS % 0.7 % (0-4.5); HEMATOCRIT 22.8 % (32.4-45.2); HEMOGLOBIN 7.9 GM/dL (10.7-15.3); MCH 30.4 pg (25.7-33.7); MCHC 34.7 g/dl (32.0-36.0); MEAN CELL VOLUME 87.5 fl (80-96); NEUT % 69.8 % (42.8-82.8); PLATELET COUNT 345 K/MM3 (134-434); RBC 2.61 M/mm3 (3.60-5.2); RDW 13.8 % (11.6-15.6); WHITE BLOOD COUNT 15.7 K/mm3 (4.0-10.0)
--- NOTE | 2018-09-29 08:56 | PN ---
Post Progress Note Post Day: 1 Type of Delivery: Vital Signs: Vital Signs Temperature 97.4 F L 09/29/18 06:00 Pulse Rate 85 09/28/18 20:00 Respiratory Rate 18 09/29/18 06:00 Blood Pressure 118/78 09/29/18 06:00 O2 Sat by Pulse Oximetry (%) 100 09/28/18 10:25 Uterus: Yes: Fundus below umbilicus Abdomen/GI: Yes: Abdomen soft Lochia: Yes: Rubra Lochia, amount: Small Extremities: Yes: Calves non-tender Perineum: Yes: Intact Activity: Ambulating - Labs Labs: CBC WBC 11.0 K/mm3 (4.0-10.0) H 09/27/18 21:00 RBC 3.12 M/mm3 (3.60-5.2) L 09/27/18 21:00 Hgb 9.4 GM/dL (10.7-15.3) L 09/27/18 21:00 Hct 27.5 % (32.4-45.2) L D 09/27/18 21:00 MCV 88.2 fl (80-96) 09/27/18 21:00 MCH 30.2 pg (25.7-33.7) 09/27/18 21:00 MCHC 34.3 g/dl (32.0-36.0) 09/27/18 21:00 RDW 13.7 % (11.6-15.6) D 09/27/18 21:00 Plt Count 418 K/MM3 (134-434) D 09/27/18 21:00 MPV 8.3 fl (7.5-11.1) D 09/27/18 21:00 Absolute Neuts (auto) 8.2 K/mm3 (1.5-8.0) H 09/27/18 21:00 Neutrophils % 74.0 % (42.8-82.8) D 09/27/18 21:00 Lymphocytes % 17.9 % (8-40) D 09/27/18 21:00 Monocytes % 7.2 % (3.8-10.2) 09/27/18 21:00 Eosinophils % 0.5 % (0-4.5) 09/27/18 21:00 Basophils % 0.4 % (0-2.0) 09/27/18 21:00 Nucleated RBC % 0 % (0-0) 09/27/18 21:00 Assessment/Plan 28yo s/p , PPD#1 Routine PP care OOB, ambulate Labs pending D/C to home PPD#2 Nancy Soria MD
[2018-09-29] MEDS: FERROUS SO4 325 MG TABLET (FP) PO SCH ×2 (09:14→17:06)
[2018-09-29] MEDS: PRENATAL VITAMINS W/ FOLIC ACID TABLET (FP) PO SCH (09:14)
[2018-09-29] MEDS ORDERED: DIPHTH,PERTUSS(ACELL),TET 0.5 ML DISP.SYRIN IM ONE (10:00)
[2018-09-29] MEDS: IBUPROFEN 600 MG TABLET (FP) PO PRN (17:06)
[2018-09-29] MEDS: ACETAMINOPHEN 325 MG TABLET (FP) PO PRN (17:06)
[2018-09-29] MEDS ORDERED: SENNOSIDES/DOCUSATE COMBO (SENNA PLUS) TABLET (UD) PO PRN (22:00)
--- NOTE | 2018-09-30 06:18 | DS ---
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 Vital Signs: Vital Signs Temperature 97.5 F L 09/29/18 22:00 Pulse Rate 88 09/29/18 22:00 Respiratory Rate 20 09/29/18 22:00 Blood Pressure 110/70 09/29/18 22:00 O2 Sat by Pulse Oximetry (%) 100 09/28/18 10:25 Constitutional: Yes: Well Nourished, No Distress, Calm Eyes: Yes: WNL, Conjunctiva Clear, EOM Intact HENT: Yes: WNL, Atraumatic, Normocephalic Neck: Yes: WNL, Supple, Trachea Midline Cardiovascular: Yes: WNL, Regular Rate and Rhythm Respiratory: Yes: WNL, Regular, CTA Bilaterally Gastrointestinal: Yes: WNL ...Rectal Exam: Yes: WNL Renal/: Yes: WNL ....Post : Yes: Uterus firm, Uterus non-tender, Slight lochia rubra Breast(s): Yes: WNL Musculoskeletal: Yes: WNL Extremities: Yes: WNL Edema: No Integumentary: Yes: WNL Neurological: Yes: WNL, Alert, Oriented ...Motor Strength: WNL Psychiatric: Yes: WNL, Alert, Oriented Labs: CBC, BMP 09/29/18 07:30 09/27/18 21:00 Delivery - Delivery Vaginal Delivery: Spontaneous Type of Anesthesia: None Episiotomy/Laceration: None EBL (cc): 300 Delivery, Single - Stages of Labor Date 1st Stage Initiatied: 09/27/18 Time 1st Stage Initiated: 10:00 Date 2nd Stage Initiated: 09/28/18 Time 2nd Stage Initiated: 09:00 Date of Delivery: 09/28/18 Time of Delivery: 09:18 Time Placenta Delivered: 09:25 Placenta: Yes: Spontaneous - Condition of Household Chores/Visual Education Director Present: No Gender: Male Weight: 9 lb 2 oz Position: Right, OA Total Hours ROM (Hrs/Mins): 11hrs 45min - 1 Minute Total Score: 9 5 Minutes Total Score: 9 - [place] Feeding Plan Initial Plan: Elected not to breastfeed exclusively throughout hospitalization Discharge Summary Reason For Visit: LABOR Procedures: Principal: Condition: Stable - Instructions Diet, Activity, Other Instructions: Regular Diet Referrals: Yisel Soria MD [Staff Physician] - Disposition: HOME - Home Medications Comprehensive Discharge Medication List: Ambulatory Orders Pnv No.95/Ferrous Fum/Folic AC [ Vitamin Tablet] 1 each PO DAILY Docusate Sodium [Colace -] 100 mg PO DAILY 09/28/18 Ferrous Sulfate [Feosol] 325 mg PO TID 09/28/18 Ibuprofen 600 mg PO Q6H PRN #30 tablet 09/29/18
[2018-09-30] MEDS: FERROUS SO4 325 MG TABLET (FP) PO SCH (09:00)
[2018-09-30] MEDS: IBUPROFEN 600 MG TABLET (FP) PO PRN (09:47)
[2018-09-30] MEDS: PRENATAL VITAMINS W/ FOLIC ACID TABLET (FP) PO SCH (09:48)
[2018-09-30] MEDS: ACETAMINOPHEN 325 MG TABLET (FP) PO PRN (09:48)
[2018-09-30 11:37] VITALS: BP 124/70; PULSE 75; TEMP 98.4
== END 2018-09-30 17:25 | disposition home or self-care (01) | DRG 560 ==
LOC: JLDR 07:40 → J3W 09-28 12:05
PROVIDERS: ADMIT Obstetrics & Gynecology; ATTEND Obstetrics & Gynecology
PROC: 10E0XZZ Delivery of Products of Conception, External Approach (ICD-10-PCS; principal; 2018-09-28)
DX: O80 Encounter for full-term uncomplicated delivery (principal); Z3A.38 38 weeks gestation of pregnancy; Z37.0 Single live birth
CPT/HCPCS: 36415; 59409; 71046-TC-FY; 80048; 85025; 85610; 85730; 86593; 86850; 86900; 86901; 87389; 90715

== ENCOUNTER 2021-05-17 23:07 | Emergency (ER) | payer OTHER ==
[2021-05-17 23:16] VITALS: BP 117/68; PULSE 94; TEMP 98.4; BMI 30.1
[2021-05-17] MEDS ORDERED: FAMOTIDINE 20 MG/50 ML IVPB 20 MG/50 ML MG IVPB ONE (23:53)
[2021-05-17] MEDS ORDERED: SODIUM CHLORIDE 1,000 ML IV STA (23:53)
[2021-05-17] MEDS ORDERED: MAG HYDROX/AL HYDROX/SIMETH 30 ML UNIT-DOSE CUP PO ONE (23:53)
[2021-05-17] MEDS ORDERED: ONDANSETRON 4 MG/2 ML VIAL IVPUSH ONE (23:53)
[2021-05-18] MEDS ORDERED: MAG HYDROX/AL HYDROX/SIMETH 30 ML UNIT-DOSE CUP ONE (00:14)
[2021-05-18] MEDS ORDERED: ONDANSETRON 4 MG/2 ML VIAL ONE (00:14)
[2021-05-18] MEDS ORDERED: FAMOTIDINE 20 MG/50 ML IVPB 20 MG/50 ML MG IVPB ONE (00:14)
[2021-05-18] MEDS ORDERED: METOCLOPRAMIDE HCL INJECTION 10 MG/2 ML VIAL IVPUSH ONE (00:15)
[2021-05-18 00:55] LABS: BASO % 1.2 % (0-2.0); HEMATOCRIT 36.2 % (32.4-45.2); HEMOGLOBIN 12.2 GM/dL (10.7-15.3); LYMPH % 26.5 % (8-40); MCH 28.7 pg (25.7-33.7); MCHC 33.7 g/dl (32.0-36.0); MEAN CELL VOLUME 85.2 fl (80-96); MEAN PLT VOLUME 7.3 fl (7.5-11.1); MONO % 7.6 % (3.8-10.2); NEUT % 63.7 % (42.8-82.8); PLATELET COUNT 359 10^3/uL (134-434); RBC 4.25 M/mm3 (3.60-5.2); RDW 14.6 % (11.6-15.6); WHITE BLOOD COUNT 8.2 K/mm3 (4.0-10.0)
[2021-05-18 00:58] LABS: EPI CELLS 25 /uL (0-25.1); HYALINE CASTS 2 /uL (0-3.1); URINE APPEARANCE CLEAR; URINE BACTERIA 203 /uL (0-1359); URINE BILIRUBIN NEGATIVE (NEGATIVE); URINE COLOR DK YELLOW; URINE GLUCOSE (UA) NEGATIVE (NEGATIVE); URINE KETONE TRACE (NEGATIVE); URINE LEUK ESTERASE TRACE (NEGATIVE); URINE NITRITE NEGATIVE (NEGATIVE); URINE PROTEIN TRACE (NEGATIVE); URINE RBC 33 /uL (0-23.9); URINE WBC 19 /uL (0-25.8)
[2021-05-18] MEDS ORDERED: METOCLOPRAMIDE HCL INJECTION 10 MG/2 ML VIAL ONE (01:12)
[2021-05-18 01:16] LABS: CALCIUM 9.1 mg/dL (8.5-10.1)
[2021-05-18 01:18] LABS: ALBUMIN 3.4 g/dl (3.4-5.0); BLOOD UREA NITROGEN 6.7 mg/dL (7-18)
[2021-05-18 01:20] LABS: CREATININE 0.5 mg/dL (0.55-1.3)
[2021-05-18 01:21] LABS: BILIRUBIN,TOTAL 0.2 mg/dL (0.2-1)
[2021-05-18 01:22] LABS: TOT PROT 7.8 g/dl (6.4-8.2)
== END 2021-05-18 02:45 | disposition home or self-care (01) ==
LOC: JER 23:07
PROC: 3E033NZ Introduction of Analgesics, Hypnotics, Sedatives into Peripheral Vein, Percutaneous Approach (ICD-10-PCS; principal; 2021-05-17)
PROC: 3E033GC Introduction of Other Therapeutic Substance into Peripheral Vein, Percutaneous Approach (ICD-10-PCS; 2021-05-17)
PROC: 3E0337Z Introduction of Electrolytic and Water Balance Substance into Peripheral Vein, Percutaneous Approach (ICD-10-PCS; 2021-05-17)
PROC: 3E033GC Introduction of Other Therapeutic Substance into Peripheral Vein, Percutaneous Approach (ICD-10-PCS; 2021-05-17)
DX: O00.01 Abdominal pregnancy with intrauterine pregnancy (principal); R11.2 Nausea with vomiting, unspecified
CPT/HCPCS: 36415; 80053; 81003; 83690; 84702; 85025; 87086; 99284-25

== ENCOUNTER 2021-11-25 17:31 | Emergency (ER) | payer OTHER ==
[2021-11-25 17:46] VITALS: BP 133/78; PULSE 98; TEMP 98.3; BMI 38.2
== END 2021-11-25 19:15 | disposition left against medical advice (07) ==
LOC: JER 17:31
DX: O26.893 Other specified pregnancy related conditions, third trimester (principal); M54.32 Sciatica, left side; Z3A.36 36 weeks gestation of pregnancy
CPT/HCPCS: 99281-25

== ENCOUNTER 2021-12-10 04:28 | Inpatient (IN) | payer OTHER ==
[2021-12-10] MEDS ORDERED: PROMETHAZINE HCL 25 MG/1 ML VIAL ONE (05:08)
[2021-12-10] MEDS ORDERED: BUTORPHANOL TARTRATE 1 MG/ML VIAL ONE (05:08)
[2021-12-10] MEDS ORDERED: PROMETHAZINE HCL 25 MG/1 ML VIAL IVPB ONE (05:35)
[2021-12-10] MEDS ORDERED: BUTORPHANOL TARTRATE 2 MG/ML VIAL IVPB ONE (05:35)
[2021-12-10 05:44] VITALS: BMI 39.4
[2021-12-10] MEDS ORDERED: ELECTROLYTE-148 SOLN 1,000 ML IV SCH (05:45)
[2021-12-10] MEDS ORDERED: OXYTOCIN 20 UNITS in 0.9% NS 20 UNIT/1,000 ML INFUS.BAG IV ONE ×2 (05:46→08:04)
[2021-12-10] MEDS ORDERED: BENZOCAINE 28 GM HEMORRHOIDAL OINTMENT TP PRN (06:16)
[2021-12-10] MEDS ORDERED: BENZOCAINE 20% 57 GM BOTTLE TP PRN (06:16)
[2021-12-10] MEDS ORDERED: BISACODYL 10 MG SUPP.RECT RC PRN (06:16)
[2021-12-10] MEDS ORDERED: WITCH HAZEL 50% (TUCKS) 40 PAD/JAR PAD TP PRN (06:16)
[2021-12-10] MEDS ORDERED: oxyCODONE HCL 5 MG TABLET PO PRN (06:16)
[2021-12-10] MEDS ORDERED: METHYLERGONOVINE MALEATE 0.2 MG/1 ML AMP IM PRN (06:16)
[2021-12-10] MEDS ORDERED: OXYTOCIN 20 UNITS in 0.9% NS 20 UNIT/1,000 ML INFUS.BAG IV SCH (06:30)
[2021-12-10 06:37] LABS: BASO % 0.2 % (0-2.0); EOS % 0.7 % (0-4.5); HEMATOCRIT 30.3 % (32.4-45.2); HEMOGLOBIN 10.2 GM/dL (10.7-15.3); LYMPH % 27.9 % (8-40); MCH 28.5 pg (25.7-33.7); MCHC 33.7 g/dl (32.0-36.0); MEAN CELL VOLUME 84.7 fl (80-96); MEAN PLT VOLUME 7.8 fl (7.5-11.1); MONO % 8.2 % (3.8-10.2); PLATELET COUNT 383 10^3/uL (134-434); RBC 3.57 M/mm3 (3.60-5.2); RDW 14.1 % (11.6-15.6); WHITE BLOOD COUNT 8.7 K/mm3 (4.0-10.0)
[2021-12-10 06:55] LABS: ALBUMIN 2.8 g/dl (3.4-5.0); BLOOD UREA NITROGEN 11.4 mg/dL (7-18); CALCIUM 8.7 mg/dL (8.5-10.1)
[2021-12-10 06:59] LABS: CREATININE 0.6 mg/dL (0.55-1.3)
[2021-12-10 07:00] LABS: BILIRUBIN,TOTAL 0.3 mg/dL (0.2-1); TOT PROT 7.3 g/dl (6.4-8.2)
[2021-12-10 07:22] LABS: INR 0.94 (0.83-1.09); PROTHROMBIN TIME (PATIENT) 10.8 SEC (9.7-13.0)
[2021-12-10 07:25] LABS: ACTIVATED PTT 29.2 SECONDS (25.2-36.5)
[2021-12-10] MEDS: ACETAMINOPHEN 325 MG TABLET (FP) PO PRN ×2 (08:45→19:50)
[2021-12-10] MEDS: FERROUS SO4 325 MG TABLET (FP) PO SCH ×3 (09:00→17:31)
[2021-12-10] MEDS: PRENATAL VITAMINS W/ FOLIC ACID TABLET (FP) PO SCH (09:53)
[2021-12-10] MEDS: IBUPROFEN 600 MG TABLET (FP) PO PRN ×2 (12:06→17:31)
[2021-12-10 17:04] LABS: HIV INTERPRETATION NEGATIVE (NEGATIVE)
[2021-12-11 09:39] LABS: BASO % 0.4 % (0-2.0); EOS % 1.7 % (0-4.5); HEMATOCRIT 29.5 % (32.4-45.2); LYMPH % 35.8 % (8-40); MCH 28.5 pg (25.7-33.7); MCHC 33.8 g/dl (32.0-36.0); MEAN CELL VOLUME 84.4 fl (80-96); MEAN PLT VOLUME 7.4 fl (7.5-11.1); MONO % 7.2 % (3.8-10.2); NEUT % 54.9 % (42.8-82.8); PLATELET COUNT 331 10^3/uL (134-434); RDW 14.1 % (11.6-15.6)
[2021-12-11] MEDS: FERROUS SO4 325 MG TABLET (FP) PO SCH ×3 (09:53→17:45)
[2021-12-11] MEDS: PRENATAL VITAMINS W/ FOLIC ACID TABLET (FP) PO SCH (09:54)
[2021-12-11] MEDS: IBUPROFEN 600 MG TABLET (FP) PO PRN (17:45)
[2021-12-11] MEDS ORDERED: SENNOSIDES/DOCUSATE COMBO (SENNA PLUS) TABLET (UD) PO PRN (22:00)
[2021-12-12] MEDS: IBUPROFEN 600 MG TABLET (FP) PO PRN (08:08)
[2021-12-12] MEDS: FERROUS SO4 325 MG TABLET (FP) PO SCH (08:08)
[2021-12-12] MEDS: PRENATAL VITAMINS W/ FOLIC ACID TABLET (FP) PO SCH (09:44)
[2021-12-12 10:33] VITALS: BP 127/72; PULSE 72; TEMP 98.2
== END 2021-12-12 12:05 | disposition home or self-care (01) | DRG 560 ==
LOC: JLDR 04:28 → J3W 08:08
PROVIDERS: ADMIT Obstetrics & Gynecology; ATTEND Obstetrics & Gynecology
PROC: 10E0XZZ Delivery of Products of Conception, External Approach (ICD-10-PCS; principal; 2021-12-10)
DX: O80 Encounter for full-term uncomplicated delivery (principal); Z3A.38 38 weeks gestation of pregnancy; Z37.0 Single live birth
CPT/HCPCS: 36415; 59409; 80053; 85025; 85610; 85730; 86762; 86780; 86850; 86900; 86901; 87081; 87340; 87389; C9803-CS; U0003; U0005

== ENCOUNTER 2023-10-13 16:25 | Emergency (ER) | payer OTHER ==
[2023-10-13 16:29] VITALS: BP 112/69; PULSE 76; RESP 18; TEMP 97.9; BMI 35.0
[2023-10-13] MEDS ORDERED: CLINDAMYCIN HCL 150 MG CAPSULE (FP) ONE (17:27)
[2023-10-13] MEDS: CLINDAMYCIN HCL 150 MG CAPSULE (FP) PO ONE (17:28)
[2023-10-13] MEDS: CLINDAMYCIN HCL 300 MG CAPSULE PO ONE (17:28)
== END 2023-10-13 17:35 | disposition home or self-care (01) ==
LOC: JERFT 16:25
DX: N61.1 Abscess of the breast and nipple (principal)
CPT/HCPCS: 87070; 87186; 87205; 99283-25